=== PATIENT | male | born 1935 | race Caucasian/White ===

== ENCOUNTER 2023-08-24 12:50 | Outpatient (CLI) | payer MEDICARE, OTHER | END 2023-08-24 12:51 | disposition home or self-care (01) | LOC: CSHSPEC 12:50 | PROVIDERS: ATTEND Psychiatry & Neurology Neurology | DX: R41.3 Other amnesia (principal); G31.9 Degenerative disease of nervous system, unspecified; I67.89 Other cerebrovascular disease | CPT/HCPCS: 70553; 82565 ==